=== PATIENT | female | born 1970 | race Caucasian/White ===

== ENCOUNTER 2016-09-18 23:10 | Emergency (ER) | payer OTHER ==
[~2016-09-18 23:10] MED LIST: AMOXICILLIN500 M2 PO; CATAFLAM50 M1 PO; CLOTRIMAZOLE TOP; CYCLOBENZAPRINE10 M1 PO; IBUPROFEN800 M1 PO; IBUPROFEN800 MG PO; LAMISIL250 M1 PO; LISINOPRIL20 M1 PO; MEDROL4 M2 PO; NORCO 5-325 TA1 EACH PO; NORCO 5/325 TAB1 TAB PO; TOBRAMYCIN5 ML OP; ULTRAM50 M1 PO; VOLTAREN-XR100 M1 PO; ZOFRAN ODT4 MG/UDTAB PO
[2016-09-18] MEDS ORDERED: BENICAR20 M1 PO (23:30)
[2016-09-18] MEDS ORDERED: ACIPHEX20 M1 PO (23:30)
[2016-09-19 00:05] LABS: BASO % 0.3 % (0-2); EOS % 0.7 % (0-7); EOSINOPHIL ABSOLUTE COUNT 0.1 tho/cmm (0.0-0.7); HGB-HEMOGLOBIN 12.8 gm/dl (12.0-15.5); IMMATURE GRANULOCYTES ABSOLUTE 0.02 tho/cmm (0-0.03); IMMATURE GRANULOCYTES PERCENT 0.3 % (0-0.3); LYMPH % 21.1 % (20-45); LYMPH ABSOLUTE COUNT 1.4 tho/cmm (0.8-4.5); MCH (MEAN CORPUSCULAR HGB) 26.6 pg (28.0-32.0); MCHC MEAN CORPUSCULAR HGB CONC 32.8 % (32.0-36.0); MCV (MEAN CELL VOLUME) 80.9 fl (82.0-96.0); MEAN PLATELET VOLUME 9.7 cmc (9.4-12.4); MONO % 7.2 % (0-12); MONOCYTE ABSOLUTE COUNT 0.5 tho/cmm (0.0-1.2); NEUTROPHIL ABSOLUTE COUNT 4.8 tho/cmm (1.6-8.0); NEUTROPHIL-AUTOMATED 4.8 tho/cmm (1.6-8.0); NEUTROPHILS % 70.4 % (40-80); PLATELET COUNT 258 tho/cmm (150-450); RED BLOOD COUNT 4.82 mil/cmm (4.00-5.20); RED CELL DISTRIBUTION WIDTH 15.4 % (12.4-16.4); WHITE BLOOD COUNT 6.8 tho/cmm (4.0-10.0)
[2016-09-19 00:39] LABS: CALCIUM 8.7 mg/dl (8.5-10.5); CHLORIDE 108 mmol/l (96-110); LIPASE 64 U/L (73-393); SODIUM 138 mmol/L (135-145)
[2016-09-19 00:40] LABS: POTASSIUM 5.1 mmol/L (3.7-5.1)
[2016-09-19 00:45] LABS: ALB/GLOB RATIO 0.7 (0.8-2.0); ALKALINE PHOSPHATASE 83 U/L (33-138); ALT/SGPT 20 U/L (12-78); ANION GAP 14 mmol/L (0-20); BILIRUBIN,TOTAL 0.6 mg/dl (0-1.5); BLOOD UREA NITROGEN 14 mg/dl (6-24); CARBON DIOXIDE-VENOUS 21 mmol/L (22-32); GLUCOSE 111 mg/dL (70-110); eGFR VALUE FOR BLACK >90 mL/Min
[2016-09-19 00:47] LABS: AST/SGOT 30 U/L (10-40)
[2016-09-19 01:28] LABS: URINE APPEARANCE HAZY; URINE BILIRUBIN NEGATIVE (NEG); URINE BLOOD LARGE (NEG); URINE COLOR YELLOW; URINE GLUCOSE (UA) NEGATIVE (NEG); URINE KETONE NEGATIVE (NEG); URINE LEUKOCYTE ESTERASE NEGATIVE (NEG); URINE NITRITE NEGATIVE (NEG); URINE PH 6.5 (5.0-8.0); URINE PROTEIN NEGATIVE (NEG)
[2016-09-19 01:35] LABS: URINE BACTERIA 1+; URINE WBC 0-2 /[HPF] (0-5)
[2016-09-19] MEDS ORDERED: PERCOCET 5-3251 EACH PO (02:52)
[2016-09-19] MEDS ORDERED: ZOFRAN4 M2 PO (02:52)
[2016-09-19] MEDS ORDERED: FLOMAX0.4 M1 PO (02:52)
== END 2016-09-19 03:05 ==
LOC: EDMED 23:10
PROVIDERS: Family Medicine
DX: N13.2 Hydronephrosis with renal and ureteral calculous obstruction (principal); M19.90 Unspecified osteoarthritis, unspecified site; Z90.710 Acquired absence of both cervix and uterus; Z90.89 Acquired absence of other organs; Z87.891 Personal history of nicotine dependence; Z79.899 Other long term (current) drug therapy
CPT/HCPCS: J2270; J2405; J7030; Q9967